=== PATIENT | female | born 1940 | race Caucasian/White ===

== ENCOUNTER 2021-11-07 12:12 | Outpatient (CLI) | payer MEDICARE | END 2021-11-07 12:13 | disposition home or self-care (01) | LOC: SCSRAD 12:12 | PROVIDERS: ATTEND Allergy & Immunology | DX: J12.9 Viral pneumonia, unspecified (principal); J15.9 Unspecified bacterial pneumonia; I51.7 Cardiomegaly | CPT/HCPCS: 71046 ==